=== PATIENT | female | born 1965 | race Caucasian/White ===

== ENCOUNTER 2017-03-23 07:56 | Emergency (ER) | payer BC ==
[2017-03-23 08:13] VITALS: BP 128/75
[2017-03-23] MEDS ORDERED: methylPREDNISolone 125 MG* 2 ML VIAL IM ONE (08:23)
--- NOTE | 2017-03-23 11:44 | UC ---
Skin Complaint HPI - HPI Summary HPI Summary: LEFT ARM SWELLING , REDNESS, PAIN AND TINGLING. PT WAS BIT BY A HORSEFLY LAST ALEXANDRE. TOOK 50 MG BENADRYL LAST NIGHT. REDNESS IS SPREADING. DENIES SOB, WHEEZING. FACIAL REDNESS NOTED, PT STATES HER FACE IS ALWAYS RED. PT DROVE HERSELF HERE [ End ] - History of Current Complaint Chief Complaint: UCAllergicReaction Time Seen by Provider: 03/23/17 08:22 Stated Complaint: INSECT BITE/ALLERGIC REACTION Hx Obtained From: Patient Hx Last Menstrual Period: n/a Onset/Duration: Gradual Onset Pain Intensity: 2 Pain Scale Used: 0-10 Numeric Alleviating: Nothing Associated Signs & Symptoms: Positive: Rash. Negative: Throat Tightening Related History: Insect Bite/Sting - Allergy/Home Medications Allergies/Adverse Reactions: Allergies Allergy/AdvReac Type Severity Reaction Status Date / Time Ampicillin Allergy Hives Verified 07/04/16 13:45 Bee Venom Allergy Swelling Verified 07/04/16 13:45 Aurora Allergy Hives Verified 07/04/16 13:45 HORSE FLYS Allergy Rash And Uncoded 03/23/17 08:06 Itching lobster Allergy Itching Uncoded 07/04/16 13:45 Home Medications: Home Medications diPHENhydraMINE PO* [Benadryl PO 25 MG TAB*] 50 mg PO BEDTIME PRN 03/23/17 [ History Confirmed 03/23/17] Review of Systems Skin: Rash All Other Systems Reviewed And Are Negative: Yes PMH/Surg Hx/FS Hx/Imm Hx Previously Healthy: Yes - Surgical History Surgical History: Yes Surgery Procedure, Year, and Place: hysterectomy. jimbo. carpal tunnel bilateral. . R wrist ligament. tonsilectomy. uterine ablation - Family History Known Family History: Positive: Unknown - Social History Lives: With Family Alcohol Use: Occasionally Substance Use Type: None Smoking Status (MU): Light Every Day Tobacco Smoker Type: Cigarettes Amount Used/How Often: 5-6 daily When Did the Patient Quit Smoking/Using Tobacco: january 02, 2014 Physical Exam Triage Information Reviewed: Yes Appearance: Well-Appearing, Well-Nourished Vital Signs: Initial Vital Signs Temp 98.2 F 03/23/17 08:07 Pulse 72 03/23/17 08:07 Resp 16 03/23/17 08:07 BP 128/75 03/23/17 08:07 Pulse Ox 98 03/23/17 08:07 Vital Signs Reviewed: Yes Eye Exam: Normal ENT Exam: Normal Dental Exam: Normal Neck exam: Normal Respiratory Exam: Normal Cardiovascular Exam: Normal Neurological Exam: Normal Psychological Exam: Normal Skin: Positive: rashes - left upper arm with redness that is near mid bicep with insect bite and redness that is light and spread down the palmar aspect of the forearm just proximal to the wrist and not in to the wrist or hand. fingers not involved. cap refill < 3 sec. peripheral pulses intact. Course/Dx - Course Course Of Treatment: steroid here to stop the spread of rash , after the shot she felt better and the skin with rash stable / improved. no benadryl here since she is driving and it causes her to be drowsy. start antihistamine at home and medrol for the rash and steroid cream for itch and if sx worsen or develop s/s of cellulitis then go to ED - Diagnoses Provider Diagnoses: Insect bite / allergic reaction Discharge - Discharge Plan Condition: Good Disposition: HOME Prescriptions: Hydrocortisone Valerate [Westcort] 0.2 % TOPICAL BID PRN #1 tube PRN Reason: Itching Methylprednisolone [Medrol Dosepak 4 MG*] 0 mg PO .SEE NIA INSTRUCTION #1 tab Patient Education Materials: Insect Bite or Sting (ED) Referrals: No Primary Care Phys,NOPCP [Primary Care Provider] - 3 Days
== END 2017-03-23 09:35 | disposition home or self-care (01) ==
LOC: UCCORT 07:56
DX: T63.481A Toxic effect of venom of other arthropod, accidental (unintentional), initial encounter (principal); L23.89 Allergic contact dermatitis due to other agents
CPT/HCPCS: 96372; 99212; G0463; J2930

== ENCOUNTER 2018-01-23 16:43 | Emergency (ER) | payer BC ==
--- NOTE | 2018-01-23 20:13 | UC ---
Complaint Female HPI - HPI Summary HPI Summary: Patient to urgent care this evening with for 4-5 days of urinary frequency urgency and burning. Patient denies fever chills back pain nausea or vomiting. - History Of Current Complaint Chief Complaint: UCGU Stated Complaint: URINARY COMPLAINT Time Seen by Provider: 01/23/18 20:11 Hx Obtained From: Patient Hx Last Menstrual Period: n/a ?: No Onset/Duration: Sudden Onset Timing: Constant Severity Initially: Mild Severity Currently: Mild Aggravating Factor(s): Urination Associated Signs And Symptoms: Positive: Negative - Allergies/Home Medications Allergies/Adverse Reactions: Allergies Allergy/AdvReac Type Severity Reaction Status Date / Time ampicillin Allergy Hives Verified 01/23/18 20:22 bee venom protein (honey bee) Allergy Swelling Verified 01/23/18 20:22 HORSE FLYS Allergy Rash And Uncoded 01/23/18 20:22 Itching lobster Allergy Itching Uncoded 01/23/18 20:22 pine Allergy Hives Uncoded 01/23/18 20:22 Home Medications: Home Medications Terbinafine HCl 250 mg PO DAILY 01/23/18 [History Confirmed 01/23/18] PMH/Surg Hx/FS Hx/Imm Hx Previously Healthy: Yes - Surgical History Surgical History: Yes Surgery Procedure, Year, and Place: hysterectomy. jimbo. carpal tunnel bilateral. . R wrist ligament. tonsilectomy. uterine ablation - Family History Known Family History: Positive: Unknown - Social History Occupation: Employed Full-time Lives: With Family Alcohol Use: Occasionally Substance Use Type: None Smoking Status (MU): Light Every Day Tobacco Smoker Type: Cigarettes Amount Used/How Often: 5-6 daily When Did the Patient Quit Smoking/Using Tobacco: january 02, 2014 Review of Systems Constitutional: Negative Skin: Negative Eyes: Negative ENT: Negative Respiratory: Negative Cardiovascular: Negative Gastrointestinal: Negative Genitourinary: Dysuria, Frequency, Urgency Motor: Negative Neurovascular: Negative Musculoskeletal: Negative Neurological: Negative Psychological: Negative Is Patient Immunocompromised?: No All Other Systems Reviewed And Are Negative: Yes Physical Exam Triage Information Reviewed: Yes Appearance: Well-Appearing, No Pain Distress, Well-Nourished Vital Signs Reviewed: Yes Eye Exam: Normal Eyes: Positive: Conjunctiva Clear - Field 2 ENT Exam: Normal ENT: Positive: Normal ENT inspection, Hearing grossly normal, Uvula midline - The patient. Negative: Nasal congestion, Trismus, Muffled voice, Hoarse voice Dental Exam: Normal Neck exam: Normal Neck: Positive: Supple, Nontender - is seen Respiratory Exam: Normal Respiratory: Positive: Chest non-tender, No respiratory distress, No accessory muscle use Cardiovascular Exam: Normal Cardiovascular: Positive: RRR, Pulses Normal, Brisk Capillary Refill - Cool Abdominal Exam: Normal Abdomen Description: Positive: Nontender, No Organomegaly, Soft. Negative: CVA Tenderness (R), CVA Tenderness (L), McBurney's Point Tenderness - this is a little more extreme than Bowel Sounds: Positive: Present Musculoskeletal Exam: Normal Musculoskeletal: Positive: Strength Intact, ROM Intact, No Edema Neurological Exam: Normal Neurological: Positive: Alert, Muscle Tone Normal Psychological Exam: Normal Skin Exam: Normal Diagnostics - Laboratory Diagnostic Studies Completed/Ordered: UA within normal limits Complaint Female Dx - Course Course Of Treatment: Patient refuses ELEMENTARY TUTOR examination, patient advised good emergency department should symptoms fail to improve or worsen at any time follow up with primary care doctor. - Differential Dx/Diagnosis Provider Diagnoses: Dysuria, resolved abdominal pain Discharge - Sign-Out/Discharge Documenting (check all that apply): Discharge - Discharge Plan Condition: Stable Disposition: HOME Patient Education Materials: Abdominal Pain (ED) Referrals: [facility] [place] PHYSICIAN REFERRAL [Outside] - 3 Days Additional Instructions: Giuliana we have not found a clear reason for your abdominal pain tonight. Your CT scan shows no apparent structural problems in her abdomen. Should you have persistent pain or worsening pain please follow up with the emergency department or your primary care doctor. I would suggest that she start back with your diet slowly advance clear liquids to full liquids to a soft diet slowly. You may take Tylenol or ibuprofen for pain - Billing Disposition and Condition Condition: STABLE Disposition: HOME
[2018-01-23 20:21] VITALS: BP 169/91
--- NOTE | 2018-01-23 21:22 | RAD ---
INDICATION: Flank pain and urinary burning. COMPARISON: There are no prior studies available for comparison. TECHNIQUE: A CT scan of the abdomen and pelvis was performed without intravenous or oral contrast. Contiguous axial sections were obtained from the lung bases through the symphysis pubis. Images were reconstructed in the coronal and sagittal planes. FINDINGS: The lung bases are clear. No pleural effusion is present. The liver and spleen are normal in size without significant focal abnormality on this noncontrast study. The patient is status post cholecystectomy. The pancreas appears to be within normal limits. The adrenal glands and kidneys are normal in size. No renal calculi or hydronephrosis is seen. No ureteral or bladder calculi are seen. The aorta is normal in caliber without significant calcific plaque. No significant enlarged retroperitoneal lymph nodes are seen. The stomach, small and large bowel appear nondistended. The appendix is not well visualized. There are a few scattered diverticuli within the colon. There is no evidence for diverticulitis or colitis. The patient is status post hysterectomy. No free intraperitoneal air or fluid is seen. No significant focal osseous abnormality is seen. IMPRESSION: 1. NO EVIDENCE FOR ACUTE FINDING OR CAUSE FOR THE PATIENT'S ABDOMINAL PAIN. 2. STATUS POST CHOLECYSTECTOMY AND HYSTERECTOMY.
== END 2018-01-23 21:40 | disposition home or self-care (01) ==
LOC: UCCORT 16:43
DX: R30.0 Dysuria (principal); R10.30 Lower abdominal pain, unspecified; F17.210 Nicotine dependence, cigarettes, uncomplicated; Z88.3 Allergy status to other anti-infective agents
CPT/HCPCS: 74176; 81003; 99211; G0463